=== PATIENT | female | born 1975 | race Caucasian/White ===

== ENCOUNTER 2019-09-01 15:04 | Emergency (ER) | payer SELFPAY ==
[~2019-09-01] VITALS: Ht 165.1 cm; Wt 118.2 kg
[2019-09-01 15:06] VITALS: BP 121/68
[2019-09-01] MEDS ORDERED: ATOR10TA84 PO (15:14)
[2019-09-01] MEDS ORDERED: LOSA25TA41 PO (15:14)
== END 2019-09-01 16:00 | disposition left against medical advice (07) ==
LOC: EMS 15:05
DX: R51 Headache (principal); Z53.21 Procedure and treatment not carried out due to patient leaving prior to being seen by health care provider

== ENCOUNTER 2021-04-08 20:52 | Emergency (ER) | payer MEDICAID ==
[~2021-04-08] VITALS: Ht 170.2 cm; Wt 115.9 kg
[~2021-04-08 20:52] MED LIST: ATOR10TA84 PO; LOSA25TA21 PO
[2021-04-08 23:30] VITALS: BP 139/85
== END 2021-04-08 23:50 | disposition home or self-care (01) ==
LOC: EMS 20:52
DX: S16.1XXA Strain of muscle, fascia and tendon at neck level, initial encounter (principal); S13.4XXA Sprain of ligaments of cervical spine, initial encounter; I10 Essential (primary) hypertension; E78.00 Pure hypercholesterolemia, unspecified; Z79.899 Other long term (current) drug therapy; V49.59XA Passenger injured in collision with other motor vehicles in traffic accident, initial encounter; Y93.89 Activity, other specified; Y92.89 Other specified places as the place of occurrence of the external cause; Y99.8 Other external cause status
CPT/HCPCS: 99283; Z7502